=== PATIENT | male | born 1945 | race Caucasian/White ===

== ENCOUNTER 2016-11-08 15:29 | Emergency (ER) | payer MEDICARE ==
[2016-11-08 15:38] VITALS: BP 141/83
--- NOTE | 2016-11-08 15:56 | UC ---
Throat Pain/Nasal Zay HPI - HPI Summary HPI Summary: complaint of nasal congestion and cough that started 4 days ago feels fatigued productive cough with lots of phlegm throat feels sore feels wheezing in his chest which is worse at night slight nausea- denies N/V/D denies headache and ear pain denies fever and chills took some robitussin earlier today without relief - History of Current Complaint Chief Complaint: UCRespiratory Stated Complaint: NAUSEA,COUGH (?) Time Seen by Provider: 11/08/16 15:48 Hx Obtained From: Patient - Allergies/Home Medications Allergies/Adverse Reactions: Allergies Allergy/AdvReac Type Severity Reaction Status Date / Time No Known Allergies Allergy Verified 11/08/16 15:38 PMH/Surg Hx/FS Hx/Imm Hx Previously Healthy: Yes Endocrine History: Dyslipidemia Cardiovascular History: Hypertension, Atrial Fibrillation Respiratory History: Bronchitis, Pneumonia - Surgical History Surgical History: Yes Surgery Procedure, Year, and Place: varicose veins - Family History Known Family History: Positive: Other - cancer in mother Negative: Cardiac Disease, Hypertension, Diabetes - Social History Occupation: Retired Lives: With Family Alcohol Use: None Substance Use Type: None Smoking Status (MU): Never Smoked Tobacco - Immunization History Most Recent Influenza Vaccination: [id number] Most Recent Pneumonia Vaccination: 2016 Review of Systems Constitutional: Fatigue Skin: Negative Eyes: Negative ENT: Sore Throat, Nasal Discharge Respiratory: Cough Cardiovascular: Negative Gastrointestinal: Negative Genitourinary: Negative Motor: Negative Neurovascular: Negative Musculoskeletal: Negative Neurological: Negative Psychological: Negative All Other Systems Reviewed And Are Negative: Yes Physical Exam Triage Information Reviewed: Yes Appearance: No Pain Distress, Well-Nourished Vital Signs: Initial Vital Signs Temp 98.3 F 11/08/16 15:31 Pulse 50 11/08/16 15:31 Resp 16 11/08/16 15:31 BP 141/83 11/08/16 15:31 Pulse Ox 99 11/08/16 15:31 Vital Signs Reviewed: Yes Eyes: Positive: Conjunctiva Clear ENT: Positive: Pharyngeal erythema, Nasal congestion, Nasal drainage, TMs normal Neck: Positive: No Lymphadenopathy Respiratory: Positive: Lungs clear, Normal breath sounds, No respiratory distress, No accessory muscle use, Rhonchi - RLL Cardiovascular: Positive: RRR, No Murmur, Pulses Normal, Brisk Capillary Refill Abdomen Description: Positive: Nontender, Soft Musculoskeletal: Positive: No Edema Neurological: Positive: Alert Psychological Exam: Normal Skin Exam: Normal Throat Pain/Nasal Course/Dx - Course Course Of Treatment: exam completed. will treat for bronchitis with antibiotic d/t exposure to second hand smoke - Differential Dx/Diagnosis Differential Diagnosis/HQI/PQRI: Sinusitis, Other - bronchitis Provider Diagnoses: bronchitis Discharge - Discharge Plan Condition: Stable Disposition: HOME Prescriptions: Amoxicillin/Clavulanate TAB* [Augmentin TAB 875*] 875 mg PO BID #20 tab Patient Education Materials: Acute Bronchitis (ED) Referrals: Giovani Galicia MD [Primary Care Provider] - Additional Instructions: Please start antibiotic as directed Increase fluids and rest Take acetaminophen or ibuprofen for fever or pain Please review your discharge instructions. If your symptoms do not improve please call your primary care provider or return to urgent care.
== END 2016-11-08 16:07 | disposition home or self-care (01) ==
LOC: UCCORT 15:29
DX: J40 Bronchitis, not specified as acute or chronic (principal); E78.5 Hyperlipidemia, unspecified; I10 Essential (primary) hypertension; I48.91 Unspecified atrial fibrillation
CPT/HCPCS: 99212; G0463

== ENCOUNTER 2016-11-22 09:47 | Emergency (ER) | payer MEDICARE ==
[2016-11-22 09:57] VITALS: BP 142/85
--- NOTE | 2016-11-22 11:20 | ED ---
Skin Complaint - HPI Summary HPI Summary: 71 y/o male presents to the clinic c/o itchiness of both hands s/p treatment with augmentin for Bronchitis here at the clinic on 11/08/2016. His itchiness is mild, w/o redness, rash or pain. He also c/o of pain on the medial side just below the left knee. He states He fell 4 days ago and one of his varicose veins on that side is swollen and painful at touch. Pain is 4/10. He denies fever, SOB, chest pain, N/V/D, rash. - History of Current Complaint Chief Complaint: UCLowerExtremity Time Seen by Provider: 11/22/16 10:45 Stated Complaint: LEFT KNEE PAIN,ITCHING Hx Obtained From: Patient Onset/Duration: Started Days Ago, Still Present Skin Exposure Onset/Duration: Days Ago Timing: Constant, Lasting Days Onset Severity: Mild Current Severity: Mild Pain Intensity: 4 Pain Scale Used: 0-10 Numeric Skin Location: Discrete - Medial aspect just below the left knee. Aggravating Symptom(s): Touch Alleviating Symptom(s): Cold Associated Signs & Symptoms: Tenderness Related History: Other: - Hx of varicose veins - Allergy/Home Medications Allergies/Adverse Reactions: Allergies Allergy/AdvReac Type Severity Reaction Status Date / Time No Known Allergies Allergy Verified 11/22/16 09:57 PMH/Surg Hx/FS Hx/Imm Hx Previously Healthy: Yes Cardiovascular History: Reports: Hx Hypertension, Other Cardiovascular Problems/ Disorders - Dyslipidemia GI History: Reports: Hx Gastroesophageal Reflux Disease - Surgical History Surgery Procedure, Year, and Place: varicose veins Infectious Disease History: No Infectious Disease History: Denies: Traveled Outside the [place] in Last 30 Days - Family History Known Family History: Positive: Other - Esophageal CA from Mother side Negative: Cardiac Disease, Hypertension, Diabetes - Social History Occupation: Retired Lives: With Family Alcohol Use: None Substance Use Type: Reports: None Smoking Status (MU): Never Smoked Tobacco Review of Systems Constitutional: Negative Eyes: Negative ENT: Negative Cardiovascular: Negative Respiratory: Negative Gastrointestinal: Negative Genitourinary: Negative Musculoskeletal: Negative Positive: Other - B/L hand itchiness and swollen and painful varicose vein on the medial aspect of left lower leg just below the left knee Neurological: Negative Psychological: Normal All Other Systems Reviewed And Are Negative: Yes Physical Exam Triage Information Reviewed: Yes Vital Signs On Initial Exam: Initial Vitals Temp Pulse Resp BP Pulse Ox 98.2 F 60 18 142/85 98 11/22/16 09:49 11/22/16 09:49 11/22/16 09:49 11/22/16 09:49 11/22/16 09:49 Vital Signs Reviewed: Yes Appearance: Positive: Well-Appearing, No Pain Distress, Well-Nourished Skin: Positive: Warm, Skin Color Reflects Adequate Perfusion, Dry - B/l hands w/ o skin eruption, erythema or tenderness on palpation. FROM of upper extremities , Strength intact, positive pulses, capillary refill and sensation are WNL. B/ L lower extremities with superficial varicose veins. On the medial aspect of the left lower leg, just below the left knee there is tenderness on palpation of a superficial varicose vein, positive mild swelling, no erythema, no echymosis or brusing observed. FROM of B/L lower extremities, Strength, pulses, capillary refill and sensation and WNL. Head/Face: Positive: Normal Head/Face Inspection Eyes: Positive: Normal, EOMI, VERENA, Conjunctiva Clear ENT: Positive: Normal ENT inspection, Hearing grossly normal, Pharynx normal, TMs normal Neck: Positive: Supple, Nontender, No Lymphadenopathy Respiratory/Lung Sounds: Positive: Clear to Auscultation, Breath Sounds Present Cardiovascular: Positive: Normal, RRR, Pulses are Symmetrical in both Upper and Lower Extremities, S1, S2 Abdomen Description: Positive: Nontender, No Organomegaly, Soft. Negative: CVA Tenderness (R), CVA Tenderness (L) Bowel Sounds: Positive: Present Musculoskeletal: Positive: Normal, Strength/ROM Intact Neurological: Positive: Normal, Sensory/Motor Intact, Alert, Oriented to Person Place, Time, CN Intact II-III, Reflexes Intact Psychiatric: Positive: Normal Diagnostics - Vital Signs Vital Signs Temp Pulse Resp BP Pulse Ox 11/22/16 09:49 98.2 F 60 18 142/85 98 - Laboratory Lab Statement: Any lab studies that have been ordered have been reviewed, and results considered in the medical decision making process. Course/Dx - Course Course Of Treatment: 71 y/o male presents to the clinic c/o itchiness of both hands and varicose vein pain of the medial aspect of left lower leg. Hx obtained. PE abnormal findings:B/l hands w/o skin eruption, erythema or tenderness on palpation. FROM of upper extremities, Strength intact, positive pulses, capillary refill and sensation are WNL. B/L lower extremities with superficial varicose veins. On the medial aspect of the left lower leg, just below the left knee there is tenderness on palpation of a superficial varicose vein, positive mild swelling, no erythema, no echymosis or brusing observed. FROM of B/L lower extremities, Strength, pulses, capillary refill and sensation and WNL. Pt Rx Atarax 25mg PO to alleviate symptoms of pruritis. For Superficial varicose veins: Patient Rx Ibuprofen 600mg PO prn after meals and continue taking Omeprazole to alleviate symptoms. Advised to apply ice and elevate legs at night time, avoid standing for long periods of time and wear compression stockings OTC at all times. Advised if symptoms do not improve to f /u with his PCP or return to the urgent care for furhter evaluation and treatment. Pt understood and agreed. - Differential Diagnoses - Skin Complaint Differential Diagnoses: Allergic Reaction, Cellulitis, Drug Rash, Eczema, Urticaria, Other - varicose veins - Diagnoses Provider Diagnoses: Pruritus, Superficial varicosities Discharge - Discharge Plan Condition: Stable Disposition: HOME Prescriptions: Ibuprofen TAB* [Motrin TAB* 600 MG] 600 mg PO Q8H PRN #20 tab PRN Reason: Pain hydrOXYzine HCL TAB* [Atarax 25 MG TAB*] 25 mg PO TID PRN #15 tab PRN Reason: Pruritis Patient Education Materials: Varicose Veins (ED), Itchy Skin (ED) Referrals: Giovani Galicia MD [Primary Care Provider] - 1 Week Additional Instructions: Please take medications as directed to alleviate symptoms of pruritus, and place your hands in epson salt twice a day. For your Varicose veins take medication as instructed and elevate legs at night time. Buy compression stockings. If symptoms worsen please return to the urgent care or f/u with your PCP for further evaluation and treatment.
== END 2016-11-22 11:22 | disposition home or self-care (01) ==
LOC: UCCORT 09:47
DX: L29.9 Pruritus, unspecified (principal); I83.90 Asymptomatic varicose veins of unspecified lower extremity; I10 Essential (primary) hypertension; I25.10 Atherosclerotic heart disease of native coronary artery without angina pectoris; E78.5 Hyperlipidemia, unspecified
CPT/HCPCS: 99212; G0463

== ENCOUNTER 2018-09-30 10:33 | Emergency (ER) | payer MEDICARE ==
[2018-09-30 11:01] VITALS: BP 140/69
--- NOTE | 2018-09-30 11:55 | UC ---
Knee Pain HPI - HPI Summary HPI Summary: right knee pain x 2 days pain is 2 out of 10 , worse with walking, better with rest, no know injury but helped his son to move during the weekend + swelling of the right knee - History of Current Complaint Chief Complaint: UCLowerExtremity Stated Complaint: RIGHT KNEE Time Seen by Provider: 09/30/18 10:53 Hx Obtained From: Patient Onset/Duration: Gradual Onset, Lasting Days - 2, Still Present Severity Initially: Moderate Severity Currently: Moderate Pain Intensity: 2 Character: Aching Aggravating Factor(s): Movement, Weight Bearing, Prolonged Standing, Stairs Alleviating Factor(s): Rest Associated Signs And Symptoms: Positive: Swelling Able to Bear Weight: Yes - Allergies/Home Medications Allergies/Adverse Reactions: Allergies Allergy/AdvReac Type Severity Reaction Status Date / Time Penicillins Allergy Intermediate Itching Verified 09/30/18 10:51 Home Medications: Home Medications Atorvastatin* [Lipitor*] 40 mg PO DAILY 09/30/18 [History Confirmed 09/30/18] Digoxin TAB* [Lanoxin TAB*] 1 tab SEE INSTRUCTIONS 09/30/18 [History Confirmed 09/30/18] Gabapentin CAP(*) [Neurontin 100 mg CAP(*)] 1 tab TID 09/30/18 [History Confirmed 09/30/18] Lisinopril TAB* [Prinivil TAB*] 20 mg PO DAILY 09/30/18 [History Confirmed 09/30] Pantoprazole TAB * [Protonix TAB*] 1 tab DAILY 09/30/18 [History Confirmed 09/30] Warfarin TAB(*) [Coumadin TAB(*)] 5 mg PO DAILY 09/30/18 [History Confirmed 12/12] metFORMIN* [Glucophage 500 MG TAB *] 1 tab QPM 09/30/18 [History Confirmed 09/30] PMH/Surg Hx/FS Hx/Imm Hx - Additional Past Medical History Additional PMH: LEFT LEG DVT & PE, DECEMBER 2016 Endocrine History: Diabetes Cardiovascular History: Hypertension, Atrial Fibrillation Respiratory History: Pulmonary Embolism - Surgical History Surgical History: Yes Surgery Procedure, Year, and Place: varicose veins - Family History Known Family History: Positive: Other - Esophageal CA from Mother side Negative: Cardiac Disease, Hypertension, Diabetes - Social History Alcohol Use: Rare Substance Use Type: None Smoking Status (MU): Never Smoked Tobacco - Immunization History Most Recent Influenza Vaccination: [id number] Most Recent Pneumonia Vaccination: 2016 Review of Systems All Other Systems Reviewed And Are Negative: Yes Constitutional: Positive: Negative Skin: Positive: Negative Eyes: Positive: Negative ENT: Positive: Negative Respiratory: Positive: Negative Is Patient Immunocompromised?: No Physical Exam Triage Information Reviewed: Yes Appearance: Well-Appearing, No Pain Distress, Well-Nourished Vital Signs: Initial Vital Signs Temp 97.6 F 09/30/18 10:51 Pulse 58 09/30/18 10:51 Resp 16 09/30/18 10:51 BP 140/69 09/30/18 10:51 Pulse Ox 97 09/30/18 10:51 Vital Signs Reviewed: Yes Eye Exam: Normal Eyes: Positive: Conjunctiva Clear ENT: Positive: Normal ENT inspection, Hearing grossly normal, Pharynx normal Neck: Positive: Supple, Nontender, No Lymphadenopathy Respiratory: Positive: Chest non-tender, Lungs clear, Normal breath sounds Cardiovascular: Positive: RRR, No Murmur, Pulses Normal Musculoskeletal: Positive: Other: - right knee: + swelling, + effusion , diffuse tenderness, limited ROM on flexion and extension , limited strength Diagnostics - Radiology No standard instances Radiology Interpretation Completed By: Radiologist Summary of Radiographic Findings: rigth knee xray : IMPRESSION: 1. JOINT EFFUSION. 2. MILD TO MODERATE OSTEOARTHRITIC CHANGE. Knee Pain Course/Dx - Differential Dx/Diagnosis Provider Diagnosis: Effusion, right knee Discharge - Sign-Out/Discharge Documenting (check all that apply): Patient Departure All imaging exams completed and their final reports reviewed: Yes - Discharge Plan Condition: Stable Disposition: HOME Patient Education Materials: Swollen Knee Joint (ED) Referrals: Benigno Sarabia MD [Medical Doctor] - As Soon As Possible Giovani Galicia MD [Primary Care Provider] - - Billing Disposition and Condition Condition: STABLE Disposition: Home
== END 2018-09-30 11:54 | disposition home or self-care (01) ==
LOC: UCCORT 10:33
DX: M25.461 Effusion, right knee (principal); M17.11 Unilateral primary osteoarthritis, right knee; I10 Essential (primary) hypertension; I48.91 Unspecified atrial fibrillation; Z87.09 Personal history of other diseases of the respiratory system; Z88.0 Allergy status to penicillin; Z79.01 Long term (current) use of anticoagulants
CPT/HCPCS: 99211; G0463

== ENCOUNTER 2019-09-16 16:02 | Emergency (ER) | payer MEDICARE ==
--- NOTE | 2019-09-16 16:37 | UC ---
Abdominal Pain Male HPI - HPI Summary HPI Summary: 73 yo male with nausea/diarrhea and left sided abd pain Had black stools in July no fever/chills a little dizzy and light headed no URI symptoms had a black stool today - History of Current Complaint Chief Complaint: UCGI Stated Complaint: STOMACH ISSUES/BLACK STOOLS Time Seen by Provider: 09/16/19 16:08 Hx Obtained From: Patient Onset/Duration: Gradual Onset, Lasting Days Timing: Constant Severity Initially: Mild Severity Currently: Mild Pain Intensity: 3 Pain Scale Used: 0-10 Numeric Location: Discrete At: LUQ Radiates: Yes Character: Colicy, Cramping Aggravating Factor(s): Nothing Alleviating Factor(s): Nothing Associated Signs And Symptoms: Positive: Dizzy, Decreased Appetite, Nausea, Diarrhea. Negative: Fever, Cough, Chest Pain, Back Pain, Constipation, Blood in Stool, Urinary Symptoms, Vomiting, Penile Discharge - Allergies/Home Medications Allergies/Adverse Reactions: Allergies Allergy/AdvReac Type Severity Reaction Status Date / Time Penicillins Allergy Intermediate Itching Verified 09/16/19 16:13 Home Medications: Home Medications Atorvastatin* [Lipitor*] 40 mg PO QPM 09/30/18 [History Confirmed 09/16/19] Lisinopril TAB* [Prinivil TAB*] 20 mg PO BID 09/30/18 [History Confirmed ] Pantoprazole TAB * [Protonix TAB*] 40 mg PO QAM 09/30/18 [History Confirmed ] Warfarin TAB(*) [Coumadin TAB(*)] 5 mg PO QPM 09/30/18 [History Confirmed ] Bismuth Subsalicylate [Pepto-Bismol Max Strength] 525 mg PO ONCE 09/16/19 [ History Confirmed 09/16/19] Digoxin TAB* [Lanoxin TAB*] 0.125 mg PO MOWEFR 09/16/19 [History Confirmed 09/15] Metformin HCl [Metformin HCl ER] 500 mg PO QPM 09/16/19 [History Confirmed 09/15] PMH/Surg Hx/FS Hx/Imm Hx Previously Healthy: Yes Endocrine History: Diabetes Cardiovascular History: Hypertension, Atrial Fibrillation, Deep Vein Thrombosis Respiratory History: Pulmonary Embolism - Surgical History Surgical History: Yes Surgery Procedure, Year, and Place: Vericose Vein Stripping, ~1962 - Family History Known Family History: Positive: Other - Esophageal CA from Mother side Negative: Cardiac Disease, Hypertension, Diabetes - Social History Alcohol Use: Rare Substance Use Type: None Smoking Status (MU): Never Smoked Tobacco - Immunization History Most Recent Influenza Vaccination: [id number] Most Recent Pneumonia Vaccination: 2016 Review of Systems All Other Systems Reviewed And Are Negative: Yes Constitutional: Positive: Negative Skin: Positive: Negative Eyes: Positive: Negative ENT: Positive: Negative Respiratory: Positive: Negative Cardiovascular: Positive: Negative Gastrointestinal: Positive: Abdominal Pain, Diarrhea, Nausea, Other - black stool Genitourinary: Positive: Negative Motor: Positive: Negative Neurovascular: Positive: Negative Musculoskeletal: Positive: Negative Neurological/Mental Status: Positive: Negative Psychological: Positive: Negative Physical Exam Triage Information Reviewed: Yes Appearance: Well-Appearing, No Pain Distress, Well-Nourished Vital Signs: Initial Vital Signs Temp 97.3 F 09/16/19 16:13 Pulse 78 09/16/19 16:13 Resp 16 09/16/19 16:13 BP 168/103 09/16/19 16:13 Pulse Ox 98 09/16/19 16:13 Vital Signs Reviewed: Yes Eyes: Positive: Conjunctiva Clear, Other: - pale conj ENT: Negative: Hearing grossly normal, Nasal congestion, Nasal drainage, Muffled voice, Hoarse voice Neck: Positive: Supple Respiratory: Positive: Lungs clear, Normal breath sounds, No respiratory distress, No accessory muscle use Cardiovascular: Positive: RRR Abdomen Description: Positive: Soft. Negative: Nontender - tender LUQ, CVA Tenderness (R), CVA Tenderness (L), Hernia @, Hepatomegaly, Peritoneal Signs, Pulsatile Mass, Splenomegaly Bowel Sounds: Positive: Hyperactive Male Genital Exam: Negative: Normal Prostate - enlarged Musculoskeletal: Positive: ROM Intact, No Edema Neurological: Positive: Alert Psychological Exam: Normal Skin Exam: Normal Diagnostics - Laboratory Lab Results: stool occult blood - Abd Pain Male Course/Dx - Differential Dx/Clinical Impression Provider Diagnosis: Left upper quadrant abdominal pain Discharge ED - Sign-Out/Discharge Documenting (check all that apply): Patient Departure All imaging exams completed and their final reports reviewed: No Studies - Discharge Plan Condition: Stable Disposition: HOME-RECOMMEND TO ED Referrals: Giovani Galicia MD [Primary Care Provider] - Additional Instructions: I suggest you go to the ER for further evaluation of your symptoms I am concerned you may have diverticulitis I spoke to Dannielle Francisco NP and they are expecting you - Billing Disposition and Condition Condition: STABLE Disposition: Home-Recommend to ED
[2019-09-16 16:47] VITALS: BP 156/104
== END 2019-09-16 17:11 | disposition home health service (06) ==
LOC: UCCORT 16:02
DX: R10.12 Left upper quadrant pain (principal); R11.0 Nausea; R19.7 Diarrhea, unspecified; R42 Dizziness and giddiness; E11.9 Type 2 diabetes mellitus without complications; I10 Essential (primary) hypertension; I48.91 Unspecified atrial fibrillation; Z79.01 Long term (current) use of anticoagulants; Z79.84 Long term (current) use of oral hypoglycemic drugs; Z79.899 Other long term (current) drug therapy; Z86.718 Personal history of other venous thrombosis and embolism; Z88.0 Allergy status to penicillin
CPT/HCPCS: 82272; 99212; G0463